=== PATIENT | female | born 1980 | race American Indian/Alaskan Native ===

== ENCOUNTER 2016-12-09 07:32 | Outpatient (CLI) | payer MEDICAID ==
--- NOTE | 2016-12-09 15:24 | Magnetic Resonance Report ---
MRI OF THE BRAIN WITHOUT CONTRAST: HISTORY: Pain, CVA PROCEDURE: Multiplanar, multisequence MR imaging of the brain without IV contrast was performed. FINDINGS: The brain parenchyma signal intensity and its fatima white interface are within normal limits on all sequences. No evidence for acute ischemia, hemorrhage or mass. No chronic infarct or extra-axial fluid collection. The midline structures are central. The basal cisterns are patent. Normal ventricular size. The orbital cavities and sella turcica demonstrate no abnormality. The visualized paranasal sinuses and mastoid air cells are well aerated. IMPRESSION: Unremarkable non-enhanced MRI of the brain.
== END 2016-12-09 07:33 | disposition home or self-care (01) ==
LOC: MRI 07:32
PROVIDERS: ATTEND Internal Medicine Hematology & Oncology
DX: E23.7 Disorder of pituitary gland, unspecified (principal); M54.9 Dorsalgia, unspecified; M79.89 Other specified soft tissue disorders
CPT/HCPCS: 70551